=== PATIENT | male | born 1945 | race Caucasian/White ===

== ENCOUNTER 2016-11-27 06:11 | Emergency (ER) | payer MEDICARE, MEDICAID ==
[~2016-11-27] VITALS: Ht 190.5 cm; Wt 90.9 kg
[~2016-11-27 06:11] MED LIST: ACET-784 PO; ASPI-556 PO; CARV3.1231 PO; DOCU-174 PO; FURO20TA4 PO; GABA-531 PO; INSLAN SQ; INSNOV SQ; METF500T4 PO; MORP30TA44 PO; MULT1TAB70 PO; SULF1TAB41 PO; TAMS0.4C32 PO; ZOLP5TAB8 PO
[2016-11-27] MEDS ORDERED: BACL10TA PO (06:36)
[2016-11-27] MEDS ORDERED: HYDR-3965 PO (06:36)
[2016-11-27 07:00] LABS: ANION GAP 13 mmol/L (8-16); CALCIUM, TOTAL 9.9 mg/dL (8.8-10.5); CARBON DIOXIDE 26 mmol/L (22-29); CHLORIDE 101 mmol/L (98-107); CREATININE 1.76 mg/dL (0.60-1.30); GLOMERULAR FILTR. RATE CALC 39 mL/min (>60); POTASSIUM 3.7 mmol/L (3.5-5.1); SODIUM SERUM 140 mmol/L (136-145); UREA NITROGEN, BLOOD 54 mg/dL (7-18)
[2016-11-27 07:01] LABS: BASOPHILS # (AUTO) 0.05 K/uL (0.00-0.20); BASOPHILS % (AUTO) 0.5 % (0.0-2.0); EOSINOPHILS # (AUTO) 0.16 K/uL (0.00-0.70); EOSINOPHILS % (AUTO) 1.62 % (1.0-6.0); HEMATOCRIT 45.3 % (41-53); LYMPHOCYTES # (AUTO) 1.5 K/uL (1.0-4.8); LYMPHOCYTES % (AUTO) 15.4 % (22.0-44.0); MEAN CORPUSCULAR HEMOGLOBIN 31.3 pg (26.0-34.0); MEAN CORPUSCULAR HGB CONC 33.2 G/dL (31.0-37.0); MEAN CORPUSCULAR VOLUME 94 fL (80-100); MONOCYTES # (AUTO) 0.8 K/uL (0.1-1.0); MONOCYTES % (AUTO) 8.5 % (2.0-9.0); NEUTROPHILS # (AUTO) 7.3 K/uL (1.8-7.7); NEUTROPHILS % (AUTO) 73.9 % (40.0-70.0); PLATELET COUNT (AUTO) 346 K/uL (150-450); RED BLOOD CELL COUNT(AUTO) 4.81 MIL/uL (4.50-5.90); RED CELL DISTRIBUTION WIDTH 13.8 % (11.5-14.5); WHITE BLOOD COUNT (AUTO) 9.8 K/uL (4.5-11.0)
[2016-11-27 07:06] LABS: ALANINE AMINOTRANSFERASE 16 U/L (12-78); ASPARTATE AMINOTRANSFERASE 18 U/L (15-37); BILIRUBIN,TOTAL 2.3 mg/dL (0.1-1.0); TOTAL PROTEIN, SERUM 7.9 g/dL (6.4-8.2)
[2016-11-27 07:37] LABS: GLUCOSE,POINT OF CARE 248 MG/DL (70-110)
[2016-11-27 07:50] VITALS: BP 142/64
[2016-11-27] MEDS ORDERED: FURO40 PO (14:44)
== END 2016-11-27 09:29 | disposition home or self-care (01) ==
LOC: EMS 06:16
DX: F43.20 Adjustment disorder, unspecified (principal); E11.9 Type 2 diabetes mellitus without complications; I10 Essential (primary) hypertension; Z86.73 Personal history of transient ischemic attack (TIA), and cerebral infarction without residual deficits; Z79.4 Long term (current) use of insulin; Z88.5 Allergy status to narcotic agent
CPT/HCPCS: 36415; 80053; 82962; 85025; 99285; G0480

== ENCOUNTER 2016-11-27 11:17 | Inpatient (IN) | payer MEDICARE, MEDICAID ==
[~2016-11-27] VITALS: Ht 185.4 cm; Wt 135.9 kg
[~2016-11-27 11:17] MED LIST changes: +BACL10TA PO; +HYDR-3965 PO
[2016-11-27 11:38] LABS: GLUCOSE,POINT OF CARE 219 MG/DL (70-110)
[2016-11-27] MEDS ORDERED: SODIUM CHLORIDE 0.9% 1,000 ML IV ONE (12:45)
[2016-11-27] MEDS ORDERED: FURO40 PO (14:44)
[2016-11-27] MEDS ORDERED: HYDROCODONE/ACETAMINOPHEN 5-325 MG TABLET PO ONE (14:45)
[2016-11-27 15:18] LABS: APPEARANCE,URINE CLOUDY (CLEAR); GLUCOSE, URINE (UA) 100 mg/dL (NEGATIVE); KETONES,URINE NEGATIVE (NEGATIVE); LEUKOCYTE ESTERASE ,URINE SMALL (NEGATIVE); OCCULT BLOOD,URINE NEGATIVE (NEGATIVE); PH,URINE 7.5 (5.0-8.0); PROTEIN,URINE SEE CONFIRM (NEGATIVE)
[2016-11-27 15:29] LABS: SULFOSALICYLIC ACID,URINE 2+ (Negative)
[2016-11-27 15:30] LABS: RBC,URINE 0-2 /HPF (0-2); SQUAMOUS EPITHELIAL CELL,UR Few /LPF (None Seen)
[2016-11-27 16:33] VITALS: BP 170/59
[2016-11-27 17:43] LABS: GLUCOSE COMMENT 1 Received Meds; GLUCOSE,POINT OF CARE 138 MG/DL (70-110)
[2016-11-27] MEDS ORDERED: DEXTROSE 50%-WATER 25 GM/50 ML SYRINGE IVP PRN ×2 (18:45→19:00)
[2016-11-27 19:42] VITALS: BP 115/56
[2016-11-27] MEDS: CARVEDILOL 3.125 MG TABLET PO SCH (20:36)
[2016-11-27] MEDS: DOCUSATE SODIUM 100 MG CAPSULE PO SCH (20:36)
[2016-11-27] MEDS: GABAPENTIN 300 MG CAPSULE PO SCH (20:36)
[2016-11-27] MEDS: INSULIN DETEMIR 100 UNITS/ML SQ SCH (20:38)
[2016-11-27] MEDS: INSULIN ASPART 100 UNITS/ML SQ PRN (20:40)
[2016-11-27 20:57] LABS: GLUCOSE COMMENT 1 Received Meds; GLUCOSE,POINT OF CARE 185 MG/DL (70-110)
[2016-11-27 23:25] VITALS: BP 133/80
[2016-11-28] MEDS: HYDROCODONE/ACETAMINOPHEN 5-325 MG TABLET PO PRN ×4 (05:01→20:26)
[2016-11-28 05:09] VITALS: BP 111/88
[2016-11-28] MEDS ORDERED: 0.9% SODIUM CHLORIDE 10 ML SYRINGE IVP PRN (06:15)
[2016-11-28] MEDS ORDERED: ONDANSETRON HCL 4 MG/2 ML VIAL IVP PRN (06:15)
[2016-11-28 06:33] LABS: GLUCOSE,POINT OF CARE 130 MG/DL (70-110)
[2016-11-28 08:02] VITALS: BP 127/65
[2016-11-28] MEDS ORDERED: INSULIN DETEMIR 100 UNITS/ML SQ SCH ×2 (09:00→21:00)
[2016-11-28] MEDS ORDERED: DOCUSATE SODIUM 100 MG CAPSULE PO SCH (09:00)
[2016-11-28] MEDS: PANTOPRAZOLE SODIUM 40 MG/VIAL IVP SCH (09:02)
[2016-11-28] MEDS: CefTRIAXone 1 GM/DEXTROSE 50 ML IV SCH (09:02)
[2016-11-28] MEDS: CARVEDILOL 3.125 MG TABLET PO SCH ×2 (09:02→20:26)
[2016-11-28] MEDS: FUROSEMIDE 40 MG TABLET PO SCH (09:02)
[2016-11-28] MEDS: DOCUSATE SODIUM 100 MG CAPSULE PO SCH ×2 (09:03→20:26)
[2016-11-28] MEDS: SODIUM CHLORIDE 0.9% 1,000 ML IV SCH ×2 (09:11→16:15)
[2016-11-28] MEDS: BACLOFEN 10 MG TABLET PO SCH (09:11)
[2016-11-28] MEDS: INSULIN DETEMIR 100 UNITS/ML SQ SCH ×2 (09:12→21:07)
[2016-11-28 10:31] LABS: BASOPHILS # (AUTO) 0.02 K/uL (0.00-0.20); BASOPHILS % (AUTO) 0.2 % (0.0-2.0); EOSINOPHILS # (AUTO) 0.54 K/uL (0.00-0.70); EOSINOPHILS % (AUTO) 5.87 % (1.0-6.0); HEMATOCRIT 40.8 % (41-53); HEMOGLOBIN 13.4 g/dL (13.5-17.5); LYMPHOCYTES # (AUTO) 1.9 K/uL (1.0-4.8); LYMPHOCYTES % (AUTO) 20.2 % (22.0-44.0); MEAN CORPUSCULAR HEMOGLOBIN 31.1 pg (26.0-34.0); MEAN CORPUSCULAR HGB CONC 32.8 G/dL (31.0-37.0); MEAN CORPUSCULAR VOLUME 95 fL (80-100); MONOCYTES % (AUTO) 10.9 % (2.0-9.0); NEUTROPHILS # (AUTO) 5.8 K/uL (1.8-7.7); NEUTROPHILS % (AUTO) 62.8 % (40.0-70.0); PLATELET COUNT (AUTO) 283 K/uL (150-450); RED BLOOD CELL COUNT(AUTO) 4.29 MIL/uL (4.50-5.90); RED CELL DISTRIBUTION WIDTH 13.9 % (11.5-14.5); WHITE BLOOD COUNT (AUTO) 9.2 K/uL (4.5-11.0)
[2016-11-28 11:12] VITALS: BP 109/55
[2016-11-28] MEDS: INSULIN ASPART 100 UNITS/ML SQ PRN ×2 (11:14→18:10)
[2016-11-28 11:21] LABS: CALCIUM, TOTAL 9.6 mg/dL (8.8-10.5); CREATININE 1.63 mg/dL (0.60-1.30); POTASSIUM 3.6 mmol/L (3.5-5.1)
[2016-11-28 12:12] LABS: GLUCOSE COMMENT 1 Received Meds; GLUCOSE,POINT OF CARE 176 MG/DL (70-110)
[2016-11-28 18:07] LABS: GLUCOSE COMMENT 1 Received Meds; GLUCOSE,POINT OF CARE 144 MG/DL (70-110)
[2016-11-28 19:59] VITALS: BP 133/71
[2016-11-28] MEDS: GABAPENTIN 300 MG CAPSULE PO SCH (20:26)
[2016-11-28 21:13] LABS: GLUCOSE,POINT OF CARE 113 MG/DL (70-110)
[2016-11-28 23:44] VITALS: BP 115/56
[2016-11-29] MEDS: SODIUM CHLORIDE 0.9% 1,000 ML IV SCH ×2 (02:15→14:11)
[2016-11-29 04:07] VITALS: BP 119/61
[2016-11-29] MEDS: CefTRIAXone 1 GM/DEXTROSE 50 ML IV SCH (06:11)
[2016-11-29 06:15] LABS: BASOPHILS % (AUTO) 0.7 % (0.0-2.0); EOSINOPHILS % (AUTO) 9.2 % (1.0-6.0); HEMOGLOBIN 14.1 g/dL (13.5-17.5); LYMPHOCYTES # (AUTO) 2.5 K/uL (1.0-4.8); MEAN CORPUSCULAR HEMOGLOBIN 31.4 pg (26.0-34.0); MEAN CORPUSCULAR HGB CONC 33.5 G/dL (31.0-37.0); MEAN CORPUSCULAR VOLUME 94 fL (80-100); MONOCYTES # (AUTO) 1.1 K/uL (0.1-1.0); MONOCYTES % (AUTO) 11.7 % (2.0-9.0); NEUTROPHILS % (AUTO) 52.4 % (40.0-70.0); PLATELET COUNT (AUTO) 301 K/uL (150-450); RED BLOOD CELL COUNT(AUTO) 4.48 MIL/uL (4.50-5.90); RED CELL DISTRIBUTION WIDTH 13.7 % (11.5-14.5); WHITE BLOOD COUNT (AUTO) 9.5 K/uL (4.5-11.0)
[2016-11-29 06:33] LABS: GLUCOSE,POINT OF CARE 98 MG/DL (70-110)
[2016-11-29 07:14] LABS: CALCIUM, TOTAL 9.8 mg/dL (8.8-10.5); CREATININE 1.5 mg/dL (0.60-1.30); POTASSIUM 3.6 mmol/L (3.5-5.1)
[2016-11-29 07:36] VITALS: BP 132/57
[2016-11-29] MEDS: DOCUSATE SODIUM 100 MG CAPSULE PO SCH ×2 (08:38→20:22)
[2016-11-29] MEDS: PANTOPRAZOLE SODIUM 40 MG/VIAL IVP SCH (08:39)
[2016-11-29] MEDS: CARVEDILOL 3.125 MG TABLET PO SCH ×2 (08:39→20:22)
[2016-11-29] MEDS: FUROSEMIDE 40 MG TABLET PO SCH (08:39)
[2016-11-29] MEDS: BACLOFEN 10 MG TABLET PO SCH (08:39)
[2016-11-29] MEDS: INSULIN DETEMIR 100 UNITS/ML SQ SCH ×2 (08:48→20:22)
[2016-11-29 11:28] VITALS: BP 137/61
[2016-11-29 12:48] LABS: GLUCOSE,POINT OF CARE 122 MG/DL (70-110)
[2016-11-29 15:37] VITALS: BP 122/84
[2016-11-29] MEDS ORDERED: MAGNESIUM HYDROXIDE SUSPENSION 30 ML UDCUP PO PRN (15:45)
[2016-11-29] MEDS: HYDROCODONE/ACETAMINOPHEN 5-325 MG TABLET PO PRN ×2 (15:59→20:22)
[2016-11-29 18:08] LABS: GLUCOSE,POINT OF CARE 137 MG/DL (70-110)
[2016-11-29 20:15] VITALS: BP 123/58
[2016-11-29] MEDS: MUPIROCIN CALCIUM 2% 22 GM OINTMENT NASAL SCH (20:22)
[2016-11-29] MEDS: GABAPENTIN 300 MG CAPSULE PO SCH (20:22)
[2016-11-29] MEDS: INSULIN ASPART 100 UNITS/ML SQ PRN (20:24)
[2016-11-29 21:48] LABS: GLUCOSE COMMENT 1 Received Meds; GLUCOSE,POINT OF CARE 150 MG/DL (70-110)
[2016-11-30] MEDS: SODIUM CHLORIDE 0.9% 1,000 ML IV SCH (00:39)
[2016-11-30] MEDS: HYDROCODONE/ACETAMINOPHEN 5-325 MG TABLET PO PRN (00:39)
[2016-11-30 00:41] VITALS: BP 100/51
[2016-11-30 04:00] VITALS: BP 115/84
[2016-11-30] MEDS: CefTRIAXone 1 GM/DEXTROSE 50 ML IV SCH (06:15)
[2016-11-30 06:23] LABS: GLUCOSE,POINT OF CARE 88 MG/DL (70-110)
[2016-11-30 07:46] VITALS: BP 113/47
[2016-11-30] MEDS: FUROSEMIDE 40 MG TABLET PO SCH (08:16)
[2016-11-30] MEDS: PANTOPRAZOLE SODIUM 40 MG/VIAL IVP SCH (08:16)
[2016-11-30] MEDS: BACLOFEN 10 MG TABLET PO SCH (08:16)
[2016-11-30] MEDS: DOCUSATE SODIUM 100 MG CAPSULE PO SCH (08:16)
[2016-11-30] MEDS: CARVEDILOL 3.125 MG TABLET PO SCH (08:16)
[2016-11-30] MEDS: MUPIROCIN CALCIUM 2% 22 GM OINTMENT NASAL SCH (08:17)
[2016-11-30] MEDS: INSULIN DETEMIR 100 UNITS/ML SQ SCH (08:25)
[2016-11-30 11:20] VITALS: BP 126/55
[2016-11-30 16:30] VITALS: BP 132/71
[2016-11-30 22:52] LABS: GLUCOSE,POINT OF CARE 121 MG/DL (70-110)
[2016-11-30 22:52] LABS: GLUCOSE,POINT OF CARE 127 MG/DL (70-110)
== END 2016-11-30 18:25 | DRG 690 ==
LOC: EMS 11:18 → 6N 15:20
PROVIDERS: ADMIT Internal Medicine; ATTEND Internal Medicine
DX: N39.0 Urinary tract infection, site not specified (principal); I10 Essential (primary) hypertension; E86.0 Dehydration; E11.9 Type 2 diabetes mellitus without complications; B96.4 Proteus (mirabilis) (morganii) as the cause of diseases classified elsewhere; Z85.038 Personal history of other malignant neoplasm of large intestine; Z86.73 Personal history of transient ischemic attack (TIA), and cerebral infarction without residual deficits; Z79.4 Long term (current) use of insulin; Z88.5 Allergy status to narcotic agent; Z79.84 Long term (current) use of oral hypoglycemic drugs; Z79.82 Long term (current) use of aspirin
CPT/HCPCS: 82962; 87081; 87086; 93005; 97162; 97530; 99285; C9113; J0696; J7030